=== PATIENT | female | born 1960 | race Caucasian/White ===

== ENCOUNTER 2018-04-12 04:59 | Day surgery (SDC) | payer OTHER, BC ==
[2018-04-11 08:57] VITALS: BMI 34.0
--- NOTE | 2018-04-11 09:28 | PAT Medication Instructions ---
Service Date April 11, 2018. Current Home Medication List Alprazolam (Xanax), 1 MG PO Q6H PRN for Anxiety Cyclobenzaprine Hcl (Flexeril), 10 MG PO TID PRN for PRN Oxycodone/Acetaminophen 5MG/325MG (Percocet 5MG/325MG), 1-2 TABLETS PO Q8H Zolpidem Tartrate (Ambien), 10 MG PO HS PRN for Sleep [Hydrocodone], 1 TAB PO PRN Medication Instructions For Your Scheduled Surgery - Hold the following medications the morning of surgery: Cyclobenzaprine Hcl (Flexeril), 10 MG PO TID PRN for PRN - Take the following medications the morning of surgery with a sip of water OTHERWISE NOTHING TO EAT OR DRINK AFTER MIDNIGHT: [Hydrocodone], 1 TAB PO PRN (okay to take if needed up to 4 hours prior to surgery) Oxycodone/Acetaminophen 5MG/325MG (Percocet 5MG/325MG), 1-2 TABLETS PO Q8H ( okay to take if needed up to 4 hours prior to surgery) Alprazolam (Xanax), 1 MG PO Q6H PRN for Anxiety - Take the following medications as scheduled the night before surgery: [Hydrocodone], 1 TAB PO PRN Oxycodone/Acetaminophen 5MG/325MG (Percocet 5MG/325MG), 1-2 TABLETS PO Q8H Cyclobenzaprine Hcl (Flexeril), 10 MG PO TID PRN for PRN Zolpidem Tartrate (Ambien), 10 MG PO HS PRN for Sleep Alprazolam (Xanax), 1 MG PO Q6H PRN for Anxiety If you have any questions please call us at [phone] or [phone] or [phone]
--- NOTE | 2018-04-11 10:21 | DIAGNOSTIC IMAGING REPORT ---
CHEST 2 VIEWS ROUTINE HISTORY: Preop. COMPARISON: None. FINDINGS: The lungs are clear. Cardiac silhouette is normal in size. No pleural effusions. No pneumothorax. There are low lung volumes. Prior cholecystectomy. IMPRESSION: No acute process. Electronically signed by: Srinivasa Haas M.D. 04/11/2018 10:20 AM Dictated Date/Time: 04/11/2018 10:11 AM
[2018-04-11 10:37] LABS: BASO % 0.6 %; BASO ABS # 0.04 K/uL (0-0.2); EOS ABS # 0.14 K/uL (0-0.5); HEMATOCRIT 40.6 % (37-47); HEMOGLOBIN 13.5 g/dL (12.0-16.0); IG# 0.01 K/uL (0.00-0.02); LYMPH % 20.9 %; LYMPH ABS # 1.48 K/uL (1.2-3.4); MEAN CELL VOLUME 85.1 fL (80-100); MEAN CORPUSCULAR HEMOGLOBIN 28.3 pg (25-34); MEAN CORPUSCULAR HGB CONC 33.3 g/dl (32-36); MEAN PLATELET VOLUME 10.6 fL (7.4-10.4); MONO % 11.6 %; MONO ABS # 0.82 K/uL (0.11-0.59); NEUT % 64.8 %; PLATELET COUNT 229 K/uL (130-400); RED CELL DISTRIBUTION WIDTH CV 14.7 % (11.5-14.5); RED CELL DISTRIBUTION WIDTH SD 46.1 fL (36.4-46.3); WHITE BLOOD COUNT 7.09 K/uL (4.8-10.8)
[2018-04-11 10:46] LABS: INR 0.9 (0.9-1.1); PTT PATIENT 24.2 SECONDS (21.0-31.0)
[2018-04-11 13:18] LABS: CALCIUM 8.9 mg/dl (8.5-10.1); CREATININE 0.66 mg/dl (0.60-1.20)
[2018-04-12] VITALS (12 sets, daily range): BP systolic 98–146; BP diastolic 60–96; PULSE 62–81; TEMP 36.4–36.7; O2SAT 95–100; Ht 160 cm; Wt 88.5 kg
[~2018-04-12] VITALS: Ht 160 cm; Wt 88.5 kg
[~2018-04-12 04:59] MED LIST: ALPR1TAB3 PO; CYCL10TA6 PO; HYDROCODONE PO; OXYC-57 PO; ZOLP10TA PO
[2018-04-12] MEDS ORDERED: CEFAZOLIN 2000MG IV PUSH 15 ML IV SCH (06:00)
[2018-04-12] MEDS ORDERED: LACTATED RINGER'S 1000ML 1,000 ML IV SCH (06:00)
[2018-04-12] MEDS ORDERED: SCOPOLAMINE 1.5 MG TDSY TD SCH (06:00)
[2018-04-12] MEDS ORDERED: ROPIVACAINE 0.5% 5 MG/ML 30 ML VIAL ONE (06:33)
[2018-04-12] MEDS ORDERED: FENTANYL CITRATE INJ 50 MCG/1 ML 2 ML VIAL ONE ×2 (06:46→07:41)
[2018-04-12] MEDS ORDERED: MIDAZOLAM HCL 1 MG/ML 2ML VIAL ONE (06:47)
--- NOTE | 2018-04-12 06:55 | History and Physical ---
History & Physical Date April 12, 2018. Chief Complaint left shoulder pain History of Present Illness The patient is a 58 year old female with complaints of left shoulder pain for several years, pain now affecting her ADLs, denies any known injury, has tried PO NSAIDs as well as cortisone injection without relief. MRI was obtained in February showing DJD of her AC joint as well as rotator cuff tear. after failing conservative measures she would like to proceed with surgical intervention Past Medical/Surgical History she denies history of HTN, high cholesterol, DM Past Medical History GERD Obesity x 2 Hysterectomy left TKA tonsils and adenoids hernia repair Allergies Coded Allergies: Lidocaine (Verified Allergy, Severe, anaphylaxis after kenalog/lidocaine injection, 04/12/18) Triamcinolone (Verified Allergy, Severe, anaphylaxis after kenalog/ lidocaine injection, 04/12/18) Metronidazole (Verified Allergy, Unknown, HIVES, 04/12/18) Oxycodone (Verified Allergy, Unknown, MEMORY LOSS FOR DAYS, 04/12/18) NSAIDs (Verified Adverse Reaction, Unknown, 2/2 gastritis, 04/12/18) Home Medications Scheduled Oxycodone/Acetaminophen 5MG/325MG (Percocet 5MG/325MG), 1-2 TABLETS PO Q8H [Hydrocodone], 1 TAB PO PRN Scheduled PRN Alprazolam (Xanax), 1 MG PO Q6H PRN for Anxiety Cyclobenzaprine Hcl (Flexeril), 10 MG PO TID PRN for PRN Zolpidem Tartrate (Ambien), 10 MG PO HS PRN for Sleep Physical Examination Skin: warm/dry, no rash Eyes: normal inspection, EOMI, sclerae normal Head: normocephalic, atraumatic Neck: supple, no adenopathy, trachea midline Respiratory/Chest: lungs clear, normal breath sounds, no respiratory distress Cardiovascular: regular rate, rhythm, no edema, no murmur Addiitonal Comments: left shoulder: NVDI, radial pulse +2, weakness with resisted forward flexion and external rotation. 5/5 with resisted IR. Active ROM FF: 160, IR L5. has full passive ROM when compared to contralateral side. Positive mai, neer and empty can testing. tender to palpation subacromial space MRI reviewed showing DJD AC joint, signal within distal end supraspinatus consistent with rotator cuff tear Diagnosis left shoulder pain -DJD AC joint -rotator cuff tear Plan of Treatment plan for left shoulder arthroscopy, subacromial decompression, excision distal clavicle, rotator cuff repair. plan for out patient therapy beginning POD #2. will be given Rx for Percocet for post-op pain management.
--- NOTE | 2018-04-12 07:01 | History & Physical Bridge Note ---
H&P Re-Evaluation Bridge Note: I have examined the patient, reviewed the History & Physical and in the interval since the performance of the History & Physical I have noted the following changes of clinical significance: No changes noted
[2018-04-12] MEDS ORDERED: PROPOFOL IV EMULSION 10 MG/ML 20 ML VIAL ONE (07:23)
[2018-04-12] MEDS ORDERED: NEOSTIGMINE METHYLSULFATE 5 MG/5 ML SYR ONE (07:24)
[2018-04-12] MEDS ORDERED: DEXAMETHASONE SOD INJ 4 MG/ML VIAL ONE (07:24)
[2018-04-12] MEDS ORDERED: ONDANSETRON INJ 2 MG/ML 2 ML VIAL ONE (07:24)
[2018-04-12] MEDS ORDERED: FUROSEMIDE 10 MG/ML 10 ML VIAL ONE (07:24)
[2018-04-12] MEDS ORDERED: ATROPINE SULFATE 0.1 MG/ML 5ML SYR IV PRN (08:00)
[2018-04-12] MEDS ORDERED: EpHEDrine SULFATE INJ 50 MG/ML AMP IV PRN (08:00)
[2018-04-12] MEDS ORDERED: METOCLOPRAMIDE HCL INJ 5 MG/ML 2 ML VIAL IV PRN (08:00)
[2018-04-12] MEDS ORDERED: ONDANSETRON INJ 2 MG/ML 2 ML VIAL IV PRN ×2 (08:00→08:45)
[2018-04-12] MEDS ORDERED: PROMETHAZINE HCL INJ 12.5 MG in SODIUM CHLORIDE 0.9% 50ML 50 ML IV PRN (08:00)
[2018-04-12] MEDS ORDERED: ACETAMINOPHEN 1000 MG/100 ML IV IV ONE (08:04)
--- NOTE | 2018-04-12 08:25 | [facility] Post Operative Brief Note ---
Immediate Operative Summary Operative Date April 12, 2018. Pre-Operative Diagnosis Degenerative Joint Disease AC Joint-Rotator cuff tear, Left Shoulder Post-Operative Diagnosis Degenerative Joint Disease AC Joint-Rotator cuff tear, Left Shoulder Procedure(s) Performed Left Shoulder Arthroscopic Subacromial Decompression, Distal Clavicle Excision, Rotator Cuff Repair, utilizing 4.5 helical anchor and a 4.5 footprint anchor SLAP repair utilizing one-point Accufix anchor Surgeon Dr. Draper Granulating Blender Surgeon(s) MAYTE Fajardo Estimated Blood Loss 3ML Findings Consistent with Post-Op Diagnosis Specimens None Drains None Anesthesia Type General Complication(s) none Disposition Disposition: Recovery Room / PACU
--- NOTE | 2018-04-12 08:28 | [facility] Operative Report ---
Operative Report Operative Date April 12, 2018. Pre-Operative Diagnosis Degenerative Joint Disease AC Joint-Rotator cuff tear, Left Shoulder Post-Operative Diagnosis Degenerative Joint Disease AC Joint-Rotator cuff tear, Left Shoulder Procedure(s) Performed Left Shoulder Arthroscopic Subacromial Decompression, Distal Clavicle Excision, Rotator Cuff Repair, utilizing 4.5 helical anchor and a 4.5 footprint anchor SLAP repair utilizing one-point Accufix anchor Surgeon Dr. Draper Marine Diesel Technician Surgeon(s) MAYTE Fajardo Estimated Blood Loss 3ML Findings Patient presents with a full-thickness rotator cuff tear as well as a SLAP tear from 11:00 to 1:00 of her superior labral biceps tendon anchor complex should be no response to conservative therapy presents of the above findings are noted at time of surgery patient also had AC joint DJD with impingement findings a type II acromion Specimens None Drains None Anesthesia Type General Complication(s) none Disposition Recovery Room / PACU Indications Patient presents after failing attempts at conservative management including physical therapy anti-inflammatories relative rest activity modification residuals are previous injection MRI will be evidence of full-thickness rotator cuff tear as well as a SLAP tear AC joint DJD patient presents for arthroscopy and arthroscopic repair of rotator cuff arthroscopic repair of SLAP lesion Description of Procedure After proper prepping and draping of the left upper extremity arterial examination beginning the region of the posterior glenohumeral portal reveals a full-thickness rotator cuff tear involving supinators tendon approximately 2 x 3 cm there is also a SLAP lesion involving the superior labral complex remaining of the articular portion of the glenohumeral joint is otherwise pristine subsequently the SLAP lesion was repaired utilizing 1.8 mm double loaded Q fix the SLAP tear being repaired back to its anatomic base subacromial space was decompressed and acromioplasty was performed as well as a distal clavicle excision particular matter debris was removed the rotator cuff was repaired and was mobilized back to a bed of bleeding bone was repaired with 4.5 helical coil as well as a 4.5 footprint anchor the wound was really good response of sterile saline solution pulsatile lavage and having performed a thorough complete rotator cuff repair skin portals were closed dressings were applied please note Dennis HU was necessary for prepping draping suture management management arm positioning was necessary for the case I attest to the content of the Intraoperative Record and any orders documented therein. Any exceptions are noted below.
[2018-04-12] MEDS ORDERED: SODIUM CHLORIDE 0.9% 1000ML 1,000 ML IV SCH (08:35)
[2018-04-12] MEDS ORDERED: OXYC-57 PO (08:36)
--- NOTE | 2018-04-12 08:37 | Discharge Instructions ---
Discharge Instructions Date of Service April 12, 2018. Visit Reason for Visit: Left Shoulder Impingement Syndrome, Osteoarthritis Discharge Discharge Diagnosis / Problem: left shoulder scope, SAD, EDC, SLAP repair, rotator cuff repair Discharge Goals Goal(s): Decrease discomfort, Improve function, Increase independence Activity Recommendations Activity Limitations: as noted below Anesthesia . Post Anesthesia Instructions: If you have had General Anesthesia or IV Sedation: * Do not drive today. * Resume driving when surgeon permits. * Do not make important decisions or sign legal documents today. * Call surgeon for: 1. Temperature elevations greater than 101 degrees F. 2. Uncontrollable pain. 3. Excessive bleeding. 4. Persistent nausea and vomiting. 5. Medication intolerance (nausea, vomiting or rash). * For nausea and vomiting use only clear liquids such as: tea, soda, bouillon until nausea subsides, then gradually increase diet as tolerated. * If you have any concerns or questions, call your surgeon's office. If physician is unavailable and it is an emergency, call 911 or go to the nearest emergency room. . Instructions / Follow-Up Instructions / Follow-Up U DISCHARGE INSTRUCTIONS: SLAP REPAIR PLUS ROTATOR CUFF REPAIR SELF CARE INSTRUCTIONS A. You are permitted to loosen your sling/immobilizer to move your elbow, wrist , and hand to prevent stiffness. You should use your well arm (good arm) to assist the operated extremity when trying to raise the arm away from the body, hygiene purposes. Do NOT actively try to use/engage your shoulder muscles in operative arm at this time. You should NOT do overhead activity, lifting, or attempt to reach behind your back. B. You may/may not be instructed to start Physical Therapy upon discharge depending upon the size and difficulty of the repair. You will be provided a prescription for therapy with specific restrictions, if needed, at time of discharge. C. At 48 hours post-operatively, you may change your dressing. (Leave white steri-strips intact if present). Use band-aids and change daily. You are allowed to shower at this time and get the incision area wet, but DO NOT soak or submerge incision area in water. (No baths, swimming pools, hot tubs) D. Do NOT apply soap or any ointment/lotions directly over incision. E. You may use ice as needed to operative shoulder SPECIAL CARE INSTRUCTIONS: VERY IMPORTANT TO READ AND REVIEW A. There are a few signs you need to watch for after you are home. Call [facility] at [phone] if you experience any of the following: a. Increased severe shoulder pain. Some pain is expected especially when you exercise b. Increased swelling in your shoulder or arm; pain or swelling in either upper extremity. (Note: swelling and stiffness is normal and expected for several weeks post op, depending on type of shoulder surgery you had). c. Any fluid or drainage from the incision; redness of the incision. d. Shortness of breath or chest pain. B. Please call [facility] at [phone] if you have any questions or concerns about your operation or recovery. C. Call your physician if: a. Temperature is greater than 101 degrees (F). b. Pain is not relieved by prescribed pain medications. c. Increase drainage or redness from incision. d. Unanswered questions or concerns. D. Pain Medication: a. You will be prescribed pain medication upon discharge that should last till your first post-operative appointment. b. If you experience nausea and/or skin rash, discontinue this medication and contact our office for an alternative medication. c. Caution- narcotic pain medication can cause constipation. FOLLOW UP VISIT: Please call [facility] at [phone] to schedule a follow up appointment 10-14 days from your surgery date. Diet Recommendations Recommended Home Diet: resume previous diet Procedures Procedures Performed: Left Shoulder Arthroscopic Subacromial Decompression, Distal Clavicle Excision, Rotator Cuff Repair, utilizing 4.5 helical anchor and a 4.5 footprint anchor SLAP repair utilizing one-point Accufix anchor Pending Studies Studies pending at discharge: no Medical Emergencies . Who to Call and When: Medical Emergencies: If at any time you feel your situation is an emergency, please call 911 immediately. . Non-Emergent Contact Non-Emergency issues call your: Primary Care Provider, Surgeon . . "Provider Documentation" section prepared by Dennis Hood. . [place] Drug Monitoring Program Search Results: patient reviewed within database, no issues identified
[2018-04-12] MEDS: FENTANYL CITRATE INJ 50 MCG/1 ML 2 ML VIAL IV PRN ×8 (08:48→10:02)
[2018-04-12] MEDS: HYDROmorphone INJ 0.5 MG/0.5 ML SYR IV PRN ×4 (09:10→09:27)
[2018-04-12] MEDS ORDERED: DiphenhydrAMINE HCL 50 MG/ML VIAL ONE (09:33)
[2018-04-12] MEDS ORDERED: KETOROLAC TROMETHAMINE 30 MG/ML VIAL ONE (09:40)
[2018-04-12] MEDS ORDERED: KETOROLAC TROMETHAMINE 30 MG/ML VIAL IV. PRN (09:45)
[2018-04-12] MEDS ORDERED: FENTANYL CITRATE INJ 50 MCG/1 ML 2 ML VIAL IV PRN (09:45)
[2018-04-12] MEDS ORDERED: DiphenhydrAMINE HCL 50 MG/ML VIAL IV PRN (09:45)
[2018-04-12] MEDS ORDERED: OXYCODONE HCL IR 5 MG TAB (IMMEDIATE RELEASE) PO ONE (11:30)
--- NOTE | 2018-04-12 12:12 | Anesthesiology Progress Note ---
Anesthesia Post Op Note Date & Time April 12, 2018 at 12:12 Vital Signs Pain Intensity: 7.0 Vital Signs Past 12 Hours Date Time Temp Pulse Resp B/P (MAP) Pulse Ox O2 Delivery O2 Flow Rate FiO2 04/12/18 11:55 36.4 76 18 124/74 97 Nasal Cannula 4 04/12/18 11:20 36.7 81 16 127/63 97 Nasal Cannula 4 04/12/18 10:50 36.4 62 12 115/64 96 Nasal Cannula 3 04/12/18 10:20 36.7 79 10 98/60 96 Nasal Cannula 3 04/12/18 10:10 36.5 82 14 110/62 93 Nasal Cannula 3 04/12/18 09:55 86 14 116/67 96 Nasal Cannula 3 04/12/18 09:45 69 14 131/84 96 Nasal Cannula 3 04/12/18 09:35 79 14 133/72 97 Nasal Cannula 3 04/12/18 09:25 78 14 139/80 93 Nasal Cannula 3 04/12/18 09:15 81 14 151/76 94 Oxymask 4 04/12/18 09:05 75 16 135/77 95 04/12/18 08:55 72 16 143/69 99 Oxyhood 7 04/12/18 08:45 75 16 153/82 99 Oxyhood 7 04/12/18 08:37 36.4 78 16 163/81 99 Oxyhood 7 04/12/18 05:51 100 Room Air 04/12/18 05:47 36.6 73 20 146/96 Notes Mental Status: alert / awake / arousable, participated in evaluation Pt Amnestic to Procedure: Yes Nausea / Vomiting: adequately controlled Pain: improving with treatment Airway Patency, RR, SpO2: stable & adequate BP & HR: stable & adequate Hydration State: stable & adequate Anesthetic Complications: no major complications apparent
[2018-04-12] MEDS ORDERED: FENTANYL CITRATE INJ 50 MCG/1 ML 2 ML VIAL IV ONE (15:00)
[2018-04-12] MEDS ORDERED: CHECK SCOPOLAMINE PATCH PLACEMENT SCH (16:00)
== END 2018-04-12 15:58 | disposition home or self-care (01) ==
LOC: C.ACU 04:59
PROVIDERS: ATTEND Orthopaedic Surgery
DX: M75.102 Unspecified rotator cuff tear or rupture of left shoulder, not specified as traumatic (principal); M19.012 Primary osteoarthritis, left shoulder; S43.432A Superior glenoid labrum lesion of left shoulder, initial encounter; K44.9 Diaphragmatic hernia without obstruction or gangrene; K21.9 Gastro-esophageal reflux disease without esophagitis; E66.9 Obesity, unspecified; Z90.710 Acquired absence of both cervix and uterus; Z96.652 Presence of left artificial knee joint; Z88.6 Allergy status to analgesic agent; Z88.5 Allergy status to narcotic agent; Z88.4 Allergy status to anesthetic agent; Z88.1 Allergy status to other antibiotic agents; X58.XXXA Exposure to other specified factors, initial encounter